=== PATIENT | female | born 1960 | race African-American/Black ===

== ENCOUNTER → 2016-02-22 | Outpatient (CLI) | payer MEDICAID ==
[~2016-02-22] MED LIST: ASPIRIN 81M81 MG/TA2 PO; HCTZ12.5TAB PO; LIPITOR20 MG PO; ODEFSEY TABLET1 EACH PO; PERCOCET 325 MG1 TA2 PO; PRINIVIL40 MG PO; ROBAXIN 50500 MG/TAB PO; ULTRAM 50MG TAB50 MG PO
== END ==
LOC: COL.LAB 12:20
DX: Z86.19 Personal history of other infectious and parasitic diseases (principal); B20 Human immunodeficiency virus [HIV] disease

== ENCOUNTER → 2016-03-14 | Outpatient (CLI) | payer MEDICAID | LOC: COL.RAD 10:25 → COL.VAS 10:25 | DX: R60.9 Edema, unspecified (principal); R91.8 Other nonspecific abnormal finding of lung field; I51.7 Cardiomegaly ==

== ENCOUNTER 2016-03-23 21:30 | Emergency (ER) | payer BC, MEDICAID ==
[~2016-03-23] VITALS: Ht 165.1 cm; Wt 90.9 kg
[2016-03-23 21:35] VITALS: TEMP 97.8
[2016-03-23] MEDS ORDERED: ULTRAM 50MG TAB50 MG PO (22:57)
[2016-03-23] MEDS ORDERED: PERCOCET 325 MG1 TA2 PO (22:57)
[2016-03-23 23:13] VITALS: BP 160/79; PULSE 51
[2016-06-05] MEDS ORDERED: ODEFSEY TABLET1 EACH PO (13:15)
[2016-06-05] MEDS ORDERED: ROBAXIN 50500 MG/TAB PO (13:16)
[2016-06-05] MEDS ORDERED: LIPITOR20 MG PO (13:16)
[2016-06-05] MEDS ORDERED: HCTZ12.5TAB PO (13:17)
[2016-06-05] MEDS ORDERED: PRINIVIL40 MG PO (13:17)
[2016-06-05] MEDS ORDERED: ASPIRIN 81M81 MG/TA2 PO (13:18)
== END 2016-03-23 23:30 | disposition home or self-care (01) ==
LOC: COL.ER 21:30
DX: M54.89 Other dorsalgia (principal); G89.29 Other chronic pain; I10 Essential (primary) hypertension; Z21 Asymptomatic human immunodeficiency virus [HIV] infection status; R00.1 Bradycardia, unspecified
CPT/HCPCS: J1885

== ENCOUNTER → 2016-04-11 | Outpatient (CLI) | payer BC, MEDICAID | LOC: COL.RAD 12:55 | DX: D38.1 Neoplasm of uncertain behavior of trachea, bronchus and lung (principal); R05 Cough; R93.8 Abnormal findings on diagnostic imaging of other specified body structures; Z21 Asymptomatic human immunodeficiency virus [HIV] infection status | CPT/HCPCS: Q9967 ==

== ENCOUNTER → 2016-06-05 | Outpatient (CLI) | payer BC, MEDICAID ==
[2016-06-05] VITALS (13 sets, daily range): BP systolic 107–193; BP diastolic 63–102; PULSE 59–78
[~2016-06-05] VITALS: Ht 165.1 cm; Wt 96.1 kg
== END ==
LOC: COL.RAD 12:46
DX: J84.10 Pulmonary fibrosis, unspecified (principal); J95.811 Postprocedural pneumothorax; Z21 Asymptomatic human immunodeficiency virus [HIV] infection status; I10 Essential (primary) hypertension; Z79.899 Other long term (current) drug therapy; E78.5 Hyperlipidemia, unspecified; Y84.8 Other medical procedures as the cause of abnormal reaction of the patient, or of later complication, without mention of misadventure at the time of the procedure
CPT/HCPCS: J2250; J3010

== ENCOUNTER → 2016-07-05 | Outpatient (CLI) | payer BC, MEDICAID ==
[2016-07-10 09:51] LABS: ANGIOTENSIN CONVERTING ENZYME 23 U/L (8 - 53)
[2016-07-11 15:17] LABS: HISTOPLASMA ID Negative (Negative); HISTOPLASMA MYCELIAL Negative (Negative)
[2016-07-13 15:58] LABS: COCCIDIOIDES AB IGG Negative (Negative); COCCIDIOIDES AB IGM Negative (Negative); COCCIDIOIDES CF Negative (Negative)
== END ==
LOC: COL.LAB 11:13
PROVIDERS: Physician Assistant
DX: R91.8 Other nonspecific abnormal finding of lung field (principal)